=== PATIENT | female | born 2000 | race Caucasian/White ===

== ENCOUNTER → 2021-12-27 | Outpatient (CLI) | payer OTHER | LOC: KOH-I 14:21 | DX: M21.42 Flat foot [pes planus] (acquired), left foot (principal); M21.41 Flat foot [pes planus] (acquired), right foot; M20.12 Hallux valgus (acquired), left foot | CPT/HCPCS: 73610; 73630; 73650 ==

== ENCOUNTER → 2022-06-25 | Outpatient (CLI) | payer OTHER | LOC: KOH-I 13:22 | DX: S92.252A Displaced fracture of navicular [scaphoid] of left foot, initial encounter for closed fracture (principal); X58.XXXA Exposure to other specified factors, initial encounter; M21.6X2 Other acquired deformities of left foot | CPT/HCPCS: 73630 ==

== ENCOUNTER → 2022-07-30 | Outpatient (CLI) | payer OTHER ==
[~2022-07-30] MED LIST: ABILIFY 5 MG TAB5 MG PO; CEFDINIR300 MG PO; HARD NAILS2500 MCG PO; LO LOESTRIN FE PO; METRONIDAZOLE500 MG PO
[2022-07-30 13:57] LABS: RED BLOOD COUNT 4.57 M/UL (4.00-5.10); WHITE BLOOD COUNT 6.9 K/UL (4.5-11.0)
[2022-07-30 14:13] LABS: BUN/CREATININE RATIO 16 (0-10)
== END ==
LOC: OPSV2 12:30
PROVIDERS: Podiatrist Foot & Ankle Surgery
DX: Z01.812 Encounter for preprocedural laboratory examination (principal); Z98.1 Arthrodesis status
CPT/HCPCS: 36415; 80048; 85027

== ENCOUNTER → 2022-08-07 | Day surgery (SDC) | payer OTHER ==
[~2022-08-07] VITALS: Ht 160 cm; Wt 74.8 kg
[~2022-08-07] MED LIST changes: +IBUPROFEN200 M1 PO; +TYLENOL EXTRA500 MG PO
== END | disposition home or self-care (01) ==
LOC: OR 07:14
DX: M25.375 Other instability, left foot (principal); M20.12 Hallux valgus (acquired), left foot; M24.572 Contracture, left ankle; Z88.1 Allergy status to other antibiotic agents
CPT/HCPCS: 73630; 76000; 84703; C1713; C1762; J0171; J0690; J1100; J1170; J1200; J1885; J2001; J2250; J2405; J2704; J2710; J2795; J3010; J3370; J3475

== ENCOUNTER → 2022-08-15 | Outpatient (CLI) | payer OTHER | LOC: KOH-I 10:34 | DX: M79.672 Pain in left foot (principal) | CPT/HCPCS: 73630 ==